=== PATIENT | female | born 1945 | race Caucasian/White ===

== ENCOUNTER 2020-01-31 15:50 | Emergency (ER) | payer MEDICARE ==
--- NOTE | 2020-01-31 16:06 | EDM.PDOC ---
ED HPI GENERAL MEDICAL PROBLEM - General Chief Complaint: Cardiovascular Problem Stated Complaint: CHEST PAIN Time Seen by Provider: 01/31/20 16:03 History Limitations: Reports: No Limitations - History of Present Illness INITIAL COMMENTS - FREE TEXT/NARRATIVE: Spent the day doing a long car ride up from [place]. Now with hypertension and bilateral upper extremity tingling Onset: Today - Related Data Allergies Allergy/AdvReac Type Severity Reaction Status Date / Time nitrofurantoin Allergy Nausea Verified 01/31/20 16:02 [From Macrobid] Home Meds: Home Meds Aspirin 81 mg PO DAILY 01/31/20 [History] Levothyroxine [Synthroid] 88 mcg PO DAILY 01/31/20 [History] Omeprazole 20 mg PO DAILY 01/31/20 [History] Propranolol [Inderal LA] 80 mg PO DAILY 01/31/20 [History] lisinopriL [Lisinopril] 10 mg PO DAILY 01/31/20 [History] ED ROS GENERAL - Review of Systems Review Of Systems: See Below Constitutional: Denies: Fever, Chills, Malaise, Weakness HEENT: Reports: No Symptoms Respiratory: Denies: Shortness of Breath Cardiovascular: Denies: Chest Pain GI/Abdominal: Denies: Abdominal Pain Neurological: Reports: Tingling (both arms), Other (feels lightheaded). Denies: Confusion, Dizziness ED EXAM, GENERAL - Physical Exam Exam: See Below Exam Limited By: No Limitations General Appearance: Alert Ears: Normal External Exam Nose: Normal Inspection Head: Atraumatic, Normocephalic Neck: Normal Inspection Respiratory/Chest: No Respiratory Distress Cardiovascular: Normal Peripheral Pulses GI/Abdominal: Normal Bowel Sounds Back Exam: Normal Inspection, Full Range of Motion Neurological: Other (observed to have nml gait from restroom) Course - Vital Signs Text/Narrative:: Patient was administered a single oral dose of clonidine and at 10 her systolic blood pressure is 192. She is complaining of some nausea and will administer Zofran. @ 17:50 bp was 182/68. Will adminster a 2nd dose of clonidine and monitor. Pt is on lisinopril and atenolol XR @ hoome. @ 1830 systolic bp 116+. Pt. states she feels MUCH better than when she came in. Will discharge home on usual medications Last Recorded V/S: Last Vital Signs Temp 37 C 06/24/20 16:05 Pulse 53 L 01/31/20 18:07 Resp 12 01/31/20 18:07 BP 142/80 H 01/31/20 18:07 Pulse Ox 95 01/31/20 18:07 - Orders/Labs/Meds Orders: Active Orders 24 hr Category Date Time Status EKG Documentation Completion [RC] ASDIRECTED Care 01/31/20 16:30 Active Vital Signs [RC] Q1H Care 01/31/20 17:11 Active Chest 2V [CR] Stat Exams 01/31/20 16:29 Taken EKG 12 Lead [EK] Urgent Ther 01/31/20 16:29 Ordered Labs: Laboratory Tests 01/31/20 01/31/20 01/31/20 Range/Units 16:16 16:16 16:16 WBC 8.6 (4.5-11.0) K/uL RBC 4.82 (3.30-5.50) M/uL Hgb 15.1 H (12.0-15.0) g/dL Hct 45.0 (36.0-48.0) % MCV 93 (80-98) fL MCH 31 (27-31) pg MCHC 34 (32-36) % Plt Count 333 (150-400) K/uL PT 9.5 (9.5-12.0) sec INR 0.87 (0.80-1.20) Sodium (140-148) mmol/L Potassium (3.6-5.2) mmol/L Chloride (100-108) mmol/L Carbon Dioxide (21-32) mmol/L Anion Gap (5.0-14.0) mmol/L BUN (7-18) mg/dL Creatinine (0.6-1.0) mg/dL Est Cr Clr Drug Dosing mL/min Estimated GFR (MDRD) (>60) Glucose (74-106) mg/dL Calcium (8.5-10.1) mg/dL Total Bilirubin (0.2-1.0) mg/dL AST (15-37) U/L ALT (12-78) U/L Alkaline Phosphatase (46-116) U/L Troponin I < 0.017 (0.000-0.056) ng/mL Total Protein (6.4-8.2) g/dL Albumin (3.4-5.0) g/dL Globulin (2.3-3.5) g/dL Albumin/Globulin Ratio (1.2-2.2) Urine Color (YELLOW) Urine Appearance (CLEAR) Urine pH (5.0-8.0) Ur Specific [place] (1.008-1.030) Urine Protein (NEGATIVE) mg/dL Urine Glucose (UA) (NEGATIVE) mg/dL Urine Ketones (NEGATIVE) mg/dL Urine Occult Blood (NEGATIVE) Urine Nitrite (NEGATIVE) Urine Bilirubin (NEGATIVE) Urine Urobilinogen (0.2-1.0) EU/dL Ur Leukocyte Esterase (NEGATIVE) Urine RBC (0-5) Urine WBC (0-5) Ur Epithelial Cells Amorphous Sediment Urine Bacteria Urine Mucus 01/31/20 01/31/20 Range/Units 16:16 17:10 WBC (4.5-11.0) K/uL RBC (3.30-5.50) M/uL Hgb (12.0-15.0) g/dL Hct (36.0-48.0) % MCV (80-98) fL MCH (27-31) pg MCHC (32-36) % Plt Count (150-400) K/uL PT (9.5-12.0) sec INR (0.80-1.20) Sodium 140 (140-148) mmol/L Potassium 4.3 (3.6-5.2) mmol/L Chloride 103 (100-108) mmol/L Carbon Dioxide 28 (21-32) mmol/L Anion Gap 8.6 (5.0-14.0) mmol/L BUN 21 H (7-18) mg/dL Creatinine 1.0 (0.6-1.0) mg/dL Est Cr Clr Drug Dosing 45.50 mL/min Estimated GFR (MDRD) 54 L (>60) Glucose 77 (74-106) mg/dL Calcium 9.8 (8.5-10.1) mg/dL Total Bilirubin 0.4 (0.2-1.0) mg/dL AST 20 (15-37) U/L ALT 29 (12-78) U/L Alkaline Phosphatase 97 (46-116) U/L Troponin I (0.000-0.056) ng/mL Total Protein 7.7 (6.4-8.2) g/dL Albumin 4.2 (3.4-5.0) g/dL Globulin 3.5 (2.3-3.5) g/dL Albumin/Globulin Ratio 1.2 (1.2-2.2) Urine Color Yellow (YELLOW) Urine Appearance Clear (CLEAR) Urine pH 7.5 (5.0-8.0) Ur Specific [place] 1.020 (1.008-1.030) Urine Protein Negative (NEGATIVE) mg/dL Urine Glucose (UA) Negative (NEGATIVE) mg/dL Urine Ketones Trace H (NEGATIVE) mg/dL Urine Occult Blood Trace-intact H (NEGATIVE) Urine Nitrite Negative (NEGATIVE) Urine Bilirubin Negative (NEGATIVE) Urine Urobilinogen 0.2 (0.2-1.0) EU/dL Ur Leukocyte Esterase Negative (NEGATIVE) Urine RBC 0-5 (0-5) Urine WBC Not seen (0-5) Ur Epithelial Cells Rare Amorphous Sediment Not seen Urine Bacteria Not seen Urine Mucus Not seen Meds: Medications Discontinued Medications Generic Name Dose Route Start Last Admin Trade Name Nori PRN Reason Stop Dose Admin Clonidine HCl 0.1 mg 01/31/20 16:31 01/31/20 16:46 Catapres PO 01/31/20 16:32 0.1 mg ONETIME ONE Administration Clonidine HCl 0.1 mg 01/31/20 17:49 01/31/20 17:54 Catapres PO 01/31/20 17:50 0.1 mg ONETIME ONE Administration Ondansetron HCl 4 mg 01/31/20 17:08 01/31/20 17:13 Zofran Odt PO 01/31/20 17:09 4 mg ONETIME ONE Administration Departure - Departure Time of Disposition: 18:45 Disposition: Home, Self-Care 01 Clinical Impression: Hypertension Instructions: Hypertension, Adult, [id number] Referrals: PCP,None [Primary Care Provider] - Forms: ED Department Discharge Additional Instructions: continue all your usual medications. Follow up fairly soon with your primary care doctor. If you can chart one or 2 blood pressures per day. Dosage of your chronic medication may need to be changed. Sepsis Event Note (ED) - Evaluation Sepsis Screening Result: No Definite Risk - Focused Exam Vital Signs: Vital Signs Temp Pulse Resp BP BP Pulse Ox 01/31/20 18:07 53 L 12 142/80 H 95 01/31/20 17:54 182/65 H 01/31/20 17:40 48 L 12 182/65 H 96 01/31/20 17:00 48 L 14 177/78 H 96 01/31/20 16:46 207/93 H 01/31/20 16:25 53 L 11 L 207/93 H 97 01/31/20 16:05 37 C 51 L 13 211/89 H 98 01/31/20 16:02 37 C 51 L 13 211/89 H 98 - My Orders Last 24 Hours: My Active Orders 01/31/20 16:29 Chest 2V [CR] Stat EKG 12 Lead [EK] Urgent 01/31/20 16:30 EKG Documentation Completion [RC] ASDIRECTED 01/31/20 17:11 Vital Signs [RC] Q1H - Assessment/Plan Last 24 Hours: My Active Orders 01/31/20 16:29 Chest 2V [CR] Stat EKG 12 Lead [EK] Urgent 01/31/20 16:30 EKG Documentation Completion [RC] ASDIRECTED 01/31/20 17:11 Vital Signs [RC] Q1H
[2020-01-31] MEDS ORDERED: cloNIDine 0.1 MG Tab PO ONE ×2 (16:31→17:49)
[2020-01-31] MEDS ORDERED: Ondansetron 4 MG Tab.DIS PO ONE (17:08)
--- NOTE | 2020-02-01 08:54 | CR ---
CHEST: 2 view CLINICAL HISTORY:Hypertension COMPARISON:None FINDINGS: The heart size, pulmonary vascularity and hilar structures are normal. No infiltrate effusion or pneumothorax is seen. Lungs are hyperaerated. There are atherosclerotic changes in the aorta. IMPRESSION: No acute cardiopulmonary process. Emphysematous changes
== END 2020-01-31 19:10 | disposition home or self-care (01) ==
LOC: JP.ED 15:50
DX: I10 Essential (primary) hypertension (principal); Z88.8 Allergy status to other drugs, medicaments and biological substances; Z79.82 Long term (current) use of aspirin; Z79.899 Other long term (current) drug therapy
CPT/HCPCS: 36415; 71046; 71046-26; 80053; 81001; 84484; 85027; 85610; 93005; 99284-25; A9270-GY